=== PATIENT | female | born 1985 | race Caucasian/White ===

== ENCOUNTER 2022-02-24 01:01 | Emergency (ER) | payer SELFPAY ==
[~2022-02-24] VITALS: Ht 165.1 cm; Wt 56.8 kg
[2022-02-24 01:03] VITALS: BP 171/101
== END 2022-02-24 02:45 | disposition home or self-care (01) ==
LOC: ER 01:02
DX: Z04.3 Encounter for examination and observation following other accident (principal); Z72.89 Other problems related to lifestyle; V87.7XXA Person injured in collision between other specified motor vehicles (traffic), initial encounter; Y93.89 Activity, other specified; Y92.89 Other specified places as the place of occurrence of the external cause; Y99.8 Other external cause status
CPT/HCPCS: 99283